=== PATIENT | male | born 1995 | race African-American/Black ===

== ENCOUNTER 2024-09-24 15:45 | Emergency (ER) | payer MEDICAID ==
[~2024-09-24] VITALS: Ht 180.3 cm; Wt 72.6 kg
[2024-09-24] MEDS ORDERED: ACETAMINOPHEN ES 500 MG TABLET ONE (16:23)
[2024-09-24] MEDS ORDERED: ONDANSETRON HCL/PF 4 MG/2 ML VIAL ONE (16:23)
[2024-09-24] MEDS: ONDANSETRON HCL/PF 4 MG/2 ML VIAL IVP ONE (16:33)
[2024-09-24] MEDS: ACETAMINOPHEN ES 500 MG TABLET PO ONE (16:33)
[2024-09-24] MEDS: IV NS 0.9% 1,000 ML BAG IV ONE (16:33)
[2024-09-24 17:14] LABS: BASOPHILS % (AUTO) 0.3 % (0.0-2.0); HEMATOCRIT 42 % (39-51); HEMOGLOBIN 14.3 g/dL (13.5-17.5); LYMPHOCYTES # (AUTO) 1.7 K/uL (0.8-4.8); LYMPHOCYTES % (AUTO) 9.3 % (20.0-44.0); MEAN CORPUSCULAR HEMOGLOBIN 31 PG (26.0-33.0); MEAN CORPUSCULAR HGB CONC 34 g/dl (31.0-36.0); MEAN CORPUSCULAR VOLUME 91 fL (80-96); MONOCYTES # (AUTO) 0.9 K/uL (0.1-1.30); NEUTROPHILS # (AUTO) 15.3 K/uL (1.8-8.9); NEUTROPHILS % (AUTO) 85.4 % (43.0-81.0); PLATELET COUNT (AUTO) 208 K/uL (150-450); RED BLOOD CELL COUNT(AUTO) 4.63 MIL/uL (4.5-6.0); RED CELL DISTRIBUTION WIDTH 13.6 % (11.5-15.0)
[2024-09-24 17:23] LABS: CALCIUM, SERUM 9.1 mg/dL (8.5-10.1); CREATININE 1.1 mg/dL (0.6-1.3); POTASSIUM 3.5 mmol/L (3.5-5.1)
[2024-09-24] MEDS ORDERED: ONDA4TAB5 PO (18:44)
[2024-09-24] MEDS ORDERED: IBUP-1490 PO (18:44)
[2024-09-24 18:56] VITALS: BP 112/64; TEMP 98.8; O2SAT 98
== END 2024-09-24 18:56 | disposition home or self-care (01) ==
LOC: ER 15:56
DX: R50.9 Fever, unspecified (principal); R11.2 Nausea with vomiting, unspecified; R20.2 Paresthesia of skin; Z20.822 Contact with and (suspected) exposure to COVID-19
CPT/HCPCS: 99285; 96374; 70450; 71045; 96361; 87804 ×2; 85025; 80048; 36415; J2405; J7030; A6253